=== PATIENT | male | born 1970 | race Caucasian/White ===

== ENCOUNTER 2018-07-20 07:05 | Day surgery (SDC) | payer OTHER ==
[~2018-07-20] VITALS: Ht 182.9 cm; Wt 86.7 kg
[2018-07-20 08:14] VITALS: Ht 182.9 cm; Wt 86.7 kg
[2018-07-20 09:01] VITALS: BP 122/74; PULSE 82; RESP 18
[2018-07-20] MEDS ORDERED: MIDAZOLAM 1 MG/ML 2 ML INJ ONE ×2 (09:57→09:58)
[2018-07-20] MEDS ORDERED: FENTAnyl 50 MCG/ML VIAL ONE (09:57)
[2018-07-20 10:17] VITALS: BP 107/63; PULSE 60; RESP 14
== END 2018-07-20 15:48 | disposition home or self-care (01) ==
LOC: GIL 07:05
PROVIDERS: ATTEND Internal Medicine Gastroenterology
DX: Z12.11 Encounter for screening for malignant neoplasm of colon (principal); K64.8 Other hemorrhoids
CPT/HCPCS: 45378; J2250; J3010; Z7610